=== PATIENT | male | born 1955 | race Caucasian/White ===

== ENCOUNTER 2017-07-01 10:10 | Inpatient (IN) | payer MEDICAID ==
[~2017-07-01] VITALS: Ht 180.3 cm; Wt 66.2 kg
[2017-07-01 10:30] VITALS: BP 152/93
[2017-07-01] MEDS ORDERED: Mylanta II UD 30ml ORAL ONE (10:45)
[2017-07-01 11:14] LABS: BASOPHILS % (AUTO) 0.8 % (0.0-2.0); EOSINOPHILS % (AUTO) 0.5 % (0.0-3.0); LYMPHOCYTES % (AUTO) 19.3 % (20.0-45.0); MEAN CORPUSCULAR HEMOGLOBIN 31.4 PG (27.0-31.0); MEAN CORPUSCULAR HGB CONC 31.9 G/DL (32.0-36.0); MEAN CORPUSCULAR VOLUME 98 FL (80-99); MEAN PLATELET VOLUME 6.1 FL (6.5-10.1); MONOCYTES % (AUTO) 9.4 % (1.0-10.0); NEUTROPHILS % (AUTO) 70.1 % (45.0-75.0); PLATELET COUNT 199 K/UL (150-450); RED BLOOD COUNT 4.87 M/UL (4.70-6.10); RED CELL DISTRIBUTION WIDTH 11.3 % (11.6-14.8); WHITE BLOOD COUNT 10.7 K/UL (4.8-10.8)
[2017-07-01 11:23] LABS: APPEARANCE,URINE CLEAR; KETONES,URINE 3+ (NEGATIVE); LEUKOCYTE ESTERASE ,URINE 1+ (NEGATIVE); NITRITE,URINE NEGATIVE (NEGATIVE); PH,URINE 5 (4.5-8.0); PROTEIN,URINE 3+ (NEGATIVE); UROBILINOGEN,URINE NORMAL MG/DL (0.0-1.0)
[2017-07-01 11:28] LABS: INR 1.1 (0.9-1.1)
[2017-07-01 11:39] LABS: BACTERIA,URINE FEW /HPF; MUCUS,URINE MODERATE /LPF (NONE/OCC); SQUAMOUS EPITHELIAL CELL,UR OCCASIONAL /LPF (NONE/OCC)
[2017-07-01 11:41] LABS: ANION GAP 12 mmol/L (5-15); CALCIUM 9.3 MG/DL (8.5-10.1); CARBON DIOXIDE 27 MMOL/L (21-32); CHLORIDE 99 MMOL/L (98-107); CREATININE 1.5 MG/DL (0.55-1.30); GLOMERULAR FILTRATION RATE 47.6 mL/min (>60); POTASSIUM 4.4 MMOL/L (3.5-5.1); SODIUM 137 MMOL/L (136-145)
[2017-07-01 11:53] LABS: ALANINE AMINOTRANSFERASE 17 U/L (12-78); ALBUMIN/GLOBULIN RATIO 0.7 (1.0-2.7); ASPARTATE AMINO TRANSFERASE 27 U/L (15-37); LIPASE 105 U/L (73-393); TOTAL PROTEIN 9.2 G/DL (6.4-8.2)
[2017-07-01 12:00] LABS: BILIRUBIN,DIRECT 0.2 MG/DL (0.0-0.3)
[2017-07-01 13:00] VITALS: BP 153/87
[2017-07-01] MEDS ORDERED: Morphine Sulfate 4mg/ml Inj IVP ONE (13:30)
--- NOTE | 2017-07-01 13:55 | Diagnostic Imaging Report ---
Indication: Abdominal pain Technique: Continuous helical transaxial imaging of the abdomen and pelvis was obtained from the lung bases to the pubic symphysis. No intravenous contrast was administered. Coronal 2-D reformats were also obtained. Automatic Exposure Control was utilized. Total Dose length Product (DLP): [address] Dose Index Volume (CTDIvol): 10.65, 0.15 mGy Comparison: none Findings: There is mild subsegmental atelectasis at the lung. There is moderate right hydronephrosis/hydroureter secondary to a right distal ureteral stone measuring 7 mm. Stone is about 2 cm from the UVJ. No additional stones are seen within either kidney or collecting system. Aorta is moderately calcified. No free fluid or free air identified. No evidence of bowel obstruction. Urinary bladder is unremarkable. There is a small right inguinal hernia containing fat. Suggestion of small peripancreatic and martine hepatis nodes nonspecific in nature. Impression: 7 mm right distal ureteral stone with mild to moderate hydronephrosis. Small right inguinal hernia containing fat Atherosclerotic vascular disease Small nodes in the celiac axis/peripancreatic region nonspecific in nature. The CT scanner at [facility] is accredited by the [employer] and the scans are performed using dose optimization techniques as appropriate to a performed exam including Automatic Exposure control.
[2017-07-01] MEDS ORDERED: Ketorolac 30mg Inj IV ONE (14:15)
--- NOTE | 2017-07-01 14:16 | Emergency Room Report ---
History of Present Illness General Chief Complaint: Pain Source: Patient Present Illness HPI Patient is a 62-year-old male presented after increased abdominal pain. Patient have increased pain to his lower abdomen. The pain was described as a vague type pain which did not radiate. Patient reports having some hesitancy with urination. He denies any fever he had gradual onset of symptoms. The patient was having some increased testicular fullness Allergies: Coded Allergies: No Known Allergies (Unverified , 07/01/17) Patient History Past Medical History: see triage record Reviewed Nursing Documentation: PMH: Agreed, PSxH: Agreed Nursing Documentation-PMH Past Medical History: No Stated History Review of Systems All Other Systems: negative except mentioned in HPI Physical Exam Vital Signs Date Time Temp Pulse Resp B/P (MAP) Pulse Ox O2 Delivery O2 Flow Rate FiO2 07/01/17 10:16 97.5 84 18 191/104 96 Room Air Sp02 EP Interpretation: reviewed, normal General Appearance: normal inspection, well appearing, alert, moderate distress Head: atraumatic ENT: normal ENT inspection, hearing grossly normal, normal voice Neck: normal inspection, full range of motion, supple, no bony tend Respiratory: normal inspection, lungs clear, normal breath sounds, no respiratory distress, no retraction, no wheezing Cardiovascular #1: regular rate, rhythm, no edema Gastrointestinal: normal inspection, normal bowel sounds, non tender, soft, no guarding, hernia - right inguinal reducible Genitourinary: no CVA tenderness Musculoskeletal: normal inspection, back normal, normal range of motion Neurologic: normal inspection, alert, oriented x3, responsive, ride operator III-XII nml as tested, speech normal Psychiatric: normal inspection, judgement/insight normal, mood/affect normal Skin: normal inspection, normal color, no rash Medical Decision Making Diagnostic Impression: Primary Impression: Kidney stone on right side Additional Impressions: Hydronephrosis Inguinal hernia ER Course Patient presented for abdominal pain. Differential diagnoses included ischemic bowel, appendicitis, perforated viscus, abdominal aortic aneurysm, inferior myocardial infarction, viral gastroenteritis Because of complexity of patient's case laboratory testing and imaging studies were ordered.Dr. Jay Restrepo was contacted for inpatient management due to panel physician. Hernia was easily reducible. Last Vital Signs Date Time Temp Pulse Resp B/P (MAP) Pulse Ox O2 Delivery O2 Flow Rate FiO2 07/01/17 13:00 98.0 86 22 153/87 94 Room Air Status: unchanged Disposition: ADMITTED INPATIENT Condition: Serious Scripts No Active Prescriptions or Reported Meds Referrals: NON PHYSICIAN (PCP) Chris Mcelroy Jul 01, 2017 14:16
[2017-07-01] MEDS ORDERED: cefTRIAXone 1 GM in NS 55 ML IVPB ONE (14:30)
[2017-07-01 17:27] VITALS: BP 152/90
[2017-07-01] MEDS ORDERED: Morphine Sulfate 4mg/ml Inj IVP PRN (19:15)
[2017-07-01 20:00] VITALS: BP 159/94
[2017-07-01 23:55] VITALS: BP 160/95
[2017-07-02] VITALS (12 sets, daily range): BP systolic 107–163; BP diastolic 59–89
--- NOTE | 2017-07-02 07:34 | Consultation ---
History of Present Illness General Date patient seen: Jul 02, 2017 Chief Complaint: Pain Reason for Consultation: Right inguinal hernia Present Illness HPI 62 year old male presented to ED with complaints of worsening right flank pain. As per patient, he was in his normal states of health until 2-3 days ago when he first started to notice right flank pain that was described as sharp 10/10 at max pain with associated nausea and emesis. After emesis he began to note some lower abdominal discomfort as well. States that he has had some urinary hesitancy recently. Had similar event 20 years ago. In ED had CT A/P which demonstrated and 7mm right ureteral stone. On CT was also noted to have a small right inguinal hernia which was fat containing. Surgery called to evaluate. Patient currently resting comfortable at bedside and states that pain is relived with pain medication but worsens as medication effect wears off. He does not recall history of hernia and was not aware he has a right inguinal hernia. Denies any prior signs or symptoms related to right inguinal hernia. No right groin pain or bulge. States he is fairly active and goes hiking without symptoms. No prior obstructive symptoms noted. Allergies: Coded Allergies: No Known Allergies (Unverified , 07/01/17) Medication History No Active Prescriptions or Reported Meds Patient History History Provided By: Patient Healthcare decision maker Resuscitation status Full Code Advanced Directive on File Past Medical/Surgical History Past Medical/Surgical History: (1) Inguinal hernia Review of Systems Constitutional: Denies: no symptoms, see HPI, chills, sweats, fever, malaise, weakness, other Eye: Denies: no symptoms, see HPI, eye pain, blurred vision, tearing, double vision, nose pain, nose congestion, acuity changes, discharge, other ENT: Denies: no symptoms, see HPI, ear pain, ear discharge, nose pain, nose congestion, throat pain, throat swelling, mouth pain, hearing loss, nasal discharge, other Respiratory: Denies: no symptoms, see HPI, cough, orthopnea, shortness of breath, stridor, wheezing, WU, sputum, other Cardiovascular: Denies: no symptoms, see HPI, chest pain, edema, palpitations, syncope, PND, other Gastrointestinal: Reports: abdominal pain, nausea, vomiting Genitourinary: Reports: dysuria, retention Musculoskeletal: Denies: no symptoms, see HPI, back pain, gout, joint pain, joint swelling, muscle pain, muscle stiffness, other Skin: Denies: no symptoms, see HPI, rash, change in color, change in hair/nails , dryness, lesions, other Psychiatric: Denies: no symptoms, see HPI, prior hx, anxiety, depressed feelings, emotional problems, SI, HI, hallucinations, other Neurological: Denies: no symptoms, see HPI, headache, numbness, paresthesia, seizure, tingling, tremors, focal weakness, syncope, dizziness, other Endocrine: Denies: no symptoms, see HPI, excessive sweating, flushing, intolerance to temperature, increased thirst, increased urine, unexplained weight loss, other Hematologic/Lymphatic: Denies: no symptoms, see HPI, anemia, blood clots, easy bleeding, easy bruising, swollen glands, diathesis, other All Other Systems: negative except mentioned in HPI Physical Exam General Appearance: WD/WN, no apparent distress, alert Lines, tubes and drains: peripheral HEENT: mucous membranes moist, PERRL Neck: normal inspection Respiratory/Chest: chest wall non-tender, lungs clear, normal breath sounds, no respiratory distress, no accessory muscle use Cardiovascular/Chest: normal peripheral pulses, normal rate, regular rhythm Abdomen: normal bowel sounds, non tender, soft, no organomegaly, no mass, hernia - small reducible right inguinal hernia noted on exam , other - right flank pain on palpation Genitourinary/Rectal: normal genital exam Extremities: normal range of motion, non-tender, normal inspection, no calf tenderness, normal capillary refill Skin Exam: normal pigmentation, warm/dry Neurologic: alert, oriented x 3 Last 24 Hour Vital Signs Date Time Temp Pulse Resp B/P (MAP) Pulse Ox O2 Delivery O2 Flow Rate FiO2 07/02/17 04:00 99.5 68 21 143/83 95 Room Air 07/02/17 00:20 98.8 07/01/17 23:55 98.8 74 18 160/95 95 Room Air 07/01/17 20:00 98.8 78 18 159/94 95 Room Air 07/01/17 17:27 97.3 75 20 152/90 96 Room Air 07/01/17 15:41 79 20 150/88 95 Room Air 07/01/17 13:00 98.0 86 22 153/87 94 Room Air 07/01/17 10:30 79 18 152/93 96 Room Air 07/01/17 10:16 97.5 84 18 191/104 96 Room Air Laboratory Tests Test 07/01/17 10:55 07/01/17 11:00 White Blood Count 10.7 K/UL (4.8-10.8) Red Blood Count 4.87 M/UL (4.70-6.10) Hemoglobin 15.3 G/DL (14.2-18.0) Hematocrit 48.0 % (42.0-52.0) Mean Corpuscular Volume 98 FL (80-99) Mean Corpuscular Hemoglobin 31.4 PG (27.0-31.0) H Mean Corpuscular Hemoglobin Concent 31.9 G/DL (32.0-36.0) L Red Cell Distribution Width 11.3 % (11.6-14.8) L Platelet Count 199 K/UL (150-450) Mean Platelet Volume 6.1 FL (6.5-10.1) L Neutrophils (%) (Auto) 70.1 % (45.0-75.0) Lymphocytes (%) (Auto) 19.3 % (20.0-45.0) L Monocytes (%) (Auto) 9.4 % (1.0-10.0) Eosinophils (%) (Auto) 0.5 % (0.0-3.0) Basophils (%) (Auto) 0.8 % (0.0-2.0) Prothrombin Time 11.0 SEC (9.30-11.50) Prothromb Time International Ratio 1.1 (0.9-1.1) Activated Partial Thromboplast Time 23 SEC (23-33) Sodium Level 137 MMOL/L (136-145) Potassium Level 4.4 MMOL/L (3.5-5.1) Chloride Level 99 MMOL/L (98-107) Carbon Dioxide Level 27 MMOL/L (21-32) Anion Gap 12 mmol/L (5-15) Blood Urea Nitrogen 19 mg/dL (7-18) H Creatinine 1.5 MG/DL (0.55-1.30) H Estimat Glomerular Filtration Rate 47.6 mL/min (>60) Glucose Level 88 MG/DL (74-106) Calcium Level 9.3 MG/DL (8.5-10.1) Total Bilirubin 1.9 MG/DL (0.2-1.0) H Direct Bilirubin 0.2 MG/DL (0.0-0.3) Aspartate Amino Transf (AST/SGOT) 27 U/L (15-37) Alanine Aminotransferase (ALT/SGPT) 17 U/L (12-78) Alkaline Phosphatase 66 U/L (46-116) Total Creatine Kinase 101 U/L (26-308) Troponin I < 0.017 ng/mL (0.000-0.056) Total Protein 9.2 G/DL (6.4-8.2) H Albumin 3.9 G/DL (3.4-5.0) Globulin 5.3 g/dL Albumin/Globulin Ratio 0.7 (1.0-2.7) L Lipase 105 U/L (73-393) Urine Color Yellow Urine Appearance Clear Urine pH 5 (4.5-8.0) Urine Specific [place] 1.025 (1.005-1.035) Urine Protein 3+ (NEGATIVE) H Urine Glucose (UA) Negative (NEGATIVE) Urine Ketones 3+ (NEGATIVE) H Urine Occult Blood 3+ (NEGATIVE) H Urine Nitrite Negative (NEGATIVE) Urine Bilirubin Negative (NEGATIVE) Urine Urobilinogen Normal MG/DL (0.0-1.0) Urine Leukocyte Esterase 1+ (NEGATIVE) H Urine RBC 5-10 /HPF (0 - 0) H Urine WBC 2-4 /HPF (0 - 0) Urine Squamous Epithelial Cells Occasional /LPF Urine Bacteria Few /HPF (NONE) Urine Mucus Moderate /LPF (NONE/OCC) H Height (Feet): 5 Height (Inches): 11.00 Weight (Pounds): 146 Medications Current Medications Medications (Trade) Dose Ordered Sig/Autumn Route PRN Reason Start Time Stop Time Status Last Admin Dose Admin Acetaminophen (Tylenol) 650 mg Q4H PRN ORAL Mild Pain/Temp > 100.5 07/01/17 19:00 07/31/17 18:59 Morphine Sulfate (Morphine Sulfate) 4 mg Q4H PRN IVP Severe Pain (Pain Scale 7-10) 07/01/17 19:15 07/08/17 19:14 07/01/17 23:44 Ondansetron HCl (Zofran) 4 mg Q6H PRN IVP Nausea & Vomiting 07/01/17 19:15 07/31/17 19:14 Sodium Chloride 1,000 ml @ 100 mls/hr Q10H IV 07/01/17 19:15 07/31/17 19:14 07/02/17 05:15 Assessment/Plan Problem List: (1) Inguinal hernia Assessment & Plan: 62 year old male with right inguinal hernia. Asymptomatic and reducible at this time. I discussed findings with patient at bedside. Patient expressed understanding. Currently main symptom is right flank pain related to right ureteral stone. He has been seen by urology and is tentatively scheduled for stent placement. No acute surgical intervention planned at this time. I will follow along with you while patient is in the hospital. If hernia becomes symptomatic will repair while in hospital otherwise patient can see me in the office and I can schedule him for elective repair. Thank you for this consultation and allowing me to participate in Mr. Infante' s care. ICD Codes: K40.90 - Unilateral inguinal hernia, without obstruction or gangrene , not specified as recurrent SNOMED: [id number] Qualifiers: Status: stable Dejon Terrell Jul 02, 2017 07:34
--- NOTE | 2017-07-02 12:21 | GI Initial Consult Note ---
History of Present Illness General Date patient seen: Jul 02, 2017 Time patient seen: 12:15 Reason for Hospitalization: Pain Referring physician: STANLEY MADISON Reason for Consultation: ABDOMINAL PAIN Present Illness HPI Patient is a 62-year-old male presented after increased abdominal pain. Patient have increased pain to his lower abdomen. The pain was described as a vague type pain which did not radiate. Patient reports having some hesitancy with urination. He denies any fever he had gradual onset of symptoms. The patient was having some increased testicular fullness. GI consulted for abdominal pain. HPI as noted above. Pt seen on floor, awake A&Ox4 NAD with no active s/sx of N/V/D. Denies any constipation, diarrhea, N/ V. Abdominal pain more described as cramping. CT AP shows ureteral stone. No leukocytosis. Lipase normal. Elevated total bilirubin without transaminitis or alk phos elevation. No known history history of endoscopic procedures. Home Meds No Active Prescriptions or Reported Meds Allergies: Coded Allergies: No Known Allergies (Unverified , 07/01/17) Patient History PMH Narrative Past Medical History: see triage record Reviewed Nursing Documentation: PMH: Agreed, PSxH: Agreed Nursing Documentation-PMH Past Medical History: No Stated History Review of Systems All Other Systems: negative except mentioned in HPI Physical Exam Vital Signs Date Time Temp Pulse Resp B/P (MAP) Pulse Ox O2 Delivery O2 Flow Rate FiO2 07/01/17 10:16 97.5 84 18 191/104 96 Room Air Sp02 EP Interpretation: reviewed, normal General Appearance: well appearing, no apparent distress, alert Head: normocephalic EENT: PERRL/EOMI, normal ENT inspection Neck: supple Respiratory: normal breath sounds, no respiratory distress Cardiovascular: normal rate Gastrointestinal: normal inspection, non tender, soft, normal bowel sounds, non -distended Rectal: deferred Genitourinary: deferred Musculoskeletal: normal inspection, back normal Neurologic: normal inspection, alert, oriented x3, responsive Psychiatric: normal inspection, judgement/insight normal, memory normal Skin: normal inspection, normal color, no rash, warm/dry, palpation normal, well hydrated Lymphatic: normal inspection, no adenopathy Current Medications Current Medications Medications (Trade) Dose Ordered Sig/Autumn Route PRN Reason Start Time Stop Time Status Last Admin Dose Admin Acetaminophen (Tylenol) 650 mg Q4H PRN ORAL Mild Pain/Temp > 100.5 07/01/17 19:00 07/31/17 18:59 Morphine Sulfate (Morphine Sulfate) 4 mg Q4H PRN IVP Severe Pain (Pain Scale 7-10) 07/01/17 19:15 07/08/17 19:14 07/01/17 23:44 Ondansetron HCl (Zofran) 4 mg Q6H PRN IVP Nausea & Vomiting 07/01/17 19:15 07/31/17 19:14 Sodium Chloride 1,000 ml @ 100 mls/hr Q10H IV 07/01/17 19:15 07/31/17 19:14 07/02/17 05:15 GI: Plan Problems: (1) Abdominal pain (2) Gilbert disease Plan CT AP reviewed >> 7 mm right distal ureteral stone with mild to moderate hydronephrosis. Total bilirubin elevation most likely 2/2 Gibert's disease fu nephro recs symptomatic treatment at this zofran prn pain mgmt monitor LFTs fu labs recommend outpatient colonoscopy screening Discussed with Dr. Díaz. Thank you for this patient referral, we will follow. Viviana Peters N.P. Jul 02, 2017 12:21
--- NOTE | 2017-07-02 14:29 | Consultation ---
History of Present Illness General Date patient seen: Jul 02, 2017 Time patient seen: 14:26 Chief Complaint: Pain Referring physician: STANLEY MADISON Reason for Consultation: ABDOMINAL PAIN Present Illness HPI 62 yo male with first ever episode right renal colic. Pain better controlled today but stone has not passed. No further nausea/vomiting Allergies: Coded Allergies: No Known Allergies (Unverified , 07/01/17) Medication History No Active Prescriptions or Reported Meds Patient History History Provided By: Patient, Medical Record Healthcare decision maker Resuscitation status Full Code Advanced Directive on File Past Medical/Surgical History Past Medical/Surgical History: (1) Kidney stone on right side (2) Inguinal hernia Review of Systems All Other Systems: negative except mentioned in HPI Physical Exam General Appearance: no apparent distress, alert Respiratory/Chest: lungs clear Cardiovascular/Chest: normal rate Abdomen: non tender, soft Last 24 Hour Vital Signs Date Time Temp Pulse Resp B/P (MAP) Pulse Ox O2 Delivery O2 Flow Rate FiO2 07/02/17 12:00 Room Air 07/02/17 12:00 Room Air 07/02/17 12:00 98.1 72 20 149/86 94 07/02/17 08:00 98.6 76 20 163/89 94 07/02/17 08:00 Room Air 07/02/17 04:00 99.5 68 21 143/83 95 Room Air 07/02/17 00:20 98.8 07/01/17 23:55 98.8 74 18 160/95 95 Room Air 07/01/17 20:00 98.8 78 18 159/94 95 Room Air 07/01/17 17:27 97.3 75 20 152/90 96 Room Air 07/01/17 15:41 79 20 150/88 95 Room Air Height (Feet): 5 Height (Inches): 11.00 Weight (Pounds): 146 Medications Current Medications Medications (Trade) Dose Ordered Sig/Autumn Route PRN Reason Start Time Stop Time Status Last Admin Dose Admin Acetaminophen (Tylenol) 650 mg Q4H PRN ORAL Mild Pain/Temp > 100.5 07/01/17 19:00 07/31/17 18:59 Ceftriaxone Sodium 1 gm/ Dextrose 55 ml @ 110 mls/hr Q24H IVPB 07/02/17 14:30 07/09/17 14:29 Morphine Sulfate (Morphine Sulfate) 4 mg Q4H PRN IVP Severe Pain (Pain Scale 7-10) 07/01/17 19:15 07/08/17 19:14 07/01/17 23:44 Ondansetron HCl (Zofran) 4 mg Q6H PRN IVP Nausea & Vomiting 07/01/17 19:15 07/31/17 19:14 Sodium Chloride 1,000 ml @ 100 mls/hr Q10H IV 07/01/17 19:15 07/31/17 19:14 07/02/17 05:[address]: right distal ureteral stone, 8 mm, with hydro Assessment/Plan Status: stable Assessment/Plan 62 yo male with right distal ureteral stone. Too large to pass. Pain is controlled, but needs decompression to protect from further pain. Consider elective lithotripsy as outpatient. 1. OR today for right ureteral stent placement. Grady Corbett M.D. Jul 02, 2017 14:29
[2017-07-02] MEDS ORDERED: cefTRIAXone 1 GM in D5W 55 ML IVPB SCH (14:30)
[2017-07-02] MEDS ORDERED: fentaNYL 100 mcg/2 mL IV ONE (15:00)
[2017-07-02] MEDS ORDERED: LR 1000ml ONE (15:00)
[2017-07-02] MEDS ORDERED: NS Irrig 1000ml ONE (15:00)
[2017-07-02] MEDS ORDERED: Sterile Water Irrig 1000ml IRRIG ONE (15:00)
[2017-07-02] MEDS ORDERED: Sterile Water For Irrig 2000ml IRRIG ONE ×2 (15:00→16:15)
[2017-07-02] MEDS ORDERED: Midazolam 2mg/2ml Inj ONE (15:00)
--- NOTE | 2017-07-02 15:11 | Pre-Procedure Note/Attestation ---
Pre-Procedure Note/Attestation Complete Prior to Procedure Planned Procedure: right Procedure Narrative: cysto right JJ stent placement Indications for Procedure Pre-Operative Diagnosis: right ureteral stone Attestation I attest that I discussed the nature of the procedure; its benefits; risks and complications; and alternatives (and the risks and benefits of such alternatives ), prior to the procedure, with the patient (or the patient's legal risk control field representative). I attest that, if there was a reasonable possibility of needing a blood transfusion, the patient (or the patient's legal risk control field representative) was given the [facility] standardized written summary, pursuant to the Ronnie [place] Blood Safety Act ([place] Health and Safety Code # 1645, as amended). I attest that I re-evaluated the patient just prior to the surgery and that there has been no change in the patient's H&P, except as documented below: Grady Corbett M.D. Jul 02, 2017 15:11
[2017-07-02] MEDS ORDERED: Propofol 200mg/20ml IV ONE (15:28)
[2017-07-02] MEDS ORDERED: Iothalamate Meglumine 60% 30ML INJ ONE (15:44)
--- NOTE | 2017-07-02 16:00 | Cardiology Report ---
APPROVED REPORT EKG Measurement Heart [id number] Normal sinus rhythm Minimal voltage criteria for LVH, may be normal variant Septal infarct, age undetermined Abnormal ECG
[2017-07-02] MEDS ORDERED: LR 1000ml 1,000 ML IVLG SCH (16:19)
--- NOTE | 2017-07-02 16:19 | Anethesia Preoperative Eval ---
Anesthesia Pre-op PMH/ROS General Date of Evaluation: Jul 02, 2017 Time of Evaluation: 15:40 Anesthesiologist: Soraya ASA Score: ASA 2 Mallampati Score Class I : Soft palate, uvula, fauces, pillars visible Class II: Soft palate, uvula, fauces visible Class III: Soft palate, base of uvula visible Class IV: Only hard plate visible Mallampati Classification: Class II Surgeon: Aric Diagnosis: R kidney stone Surgical Procedure: Cysto retrograde pyelogram stent placement Anesthesia History: none Social History: smoking - h/o Family History: no anesthesia problems Allergies: Coded Allergies: No Known Allergies (Unverified , 07/01/17) Medications: see eMAR Past Medical History Cardiovascular: Denies: HTN, CAD, AR, valve dz, arrhythmia, other Pulmonary: Denies: asthma, COPD, KERRY, other Gastrointestinal/Genitourinary: Reports: GERD - mild, Denies: CRI, ESRD, other Neurologic/Psychiatric: Denies: dementia, CVA, depression/anxiety, TIA, other Endocrine: Denies: DM, hypothyroidism, steroids, other HEENT: Denies: cataract (L), cataract (R), glaucoma, RUBY (L), RUBY (R), other Hematology/Immune: Denies: anemia, DVT, bleeding disorder, other Musculoskeletal/Integumentary: Denies: OA, RA, DJD, DDD, edema, other PMH Narrative: as above, admitted with acute abdominal pain, diagnosed with R KIDNEY STONE PSxH Narrative: ORIF R tibia Anesthesia Pre-op Phys. Exam Physician Exam Last Vital Signs Date Time Temp Pulse Resp B/P (MAP) Pulse Ox O2 Delivery O2 Flow Rate FiO2 07/02/17 12:00 Room Air 07/02/17 12:00 98.1 72 20 149/86 94 Constitutional: NAD Neurologic: CN 2-12 intact Cardiovascular: RRR, no M/R/G Respiratory: CTA Gastrointestinal: S/NT/ND Airway Exam Mallampati Score: Class II MO: full Neck: flexible ROM: full Teeth: missing Dentures: upper, lower Anesthesia Pre-op A/P Labs see chart Studies Pre-op Studies: EKG - NR Risk Assessment & Plan Assessment: ASA2 Plan: GA with LMA Status Change Before Surgery: No Pre-Antibiotics Drug: as scheduled MARIO MOELLER M.D. Jul 02, 2017 16:19
[2017-07-02] MEDS ORDERED: Meperidine 50mg/ml Inj(FOR RIGORS ONLY) IV PRN (16:30)
[2017-07-02] MEDS ORDERED: Ketorolac 30mg Inj IV PRN (16:30)
[2017-07-02] MEDS ORDERED: Hydromorphone 0.5mg/0.5ml inj IVP PRN (16:30)
[2017-07-02] MEDS ORDERED: DiphenhydrAMINE 50mg/ml Inj IVP PRN (16:30)
--- NOTE | 2017-07-02 16:37 | Brief Operative Note ---
Immediate Post Operative Note Operative Note Pre-op Diagnosis: right ureteral stone Procedure: cysto, right RPG, right JJ stent Post-op Diagnosis: same as pre-op Anesthesia: general Specimen: none Complications: none Condition: stable Fluids: 100 mL Estimated Blood Loss: none Drains: other - 6x24 JJ stent Implant(s) used?: Yes Grady Corbett M.D. Jul 02, 2017 16:36
--- NOTE | 2017-07-02 16:46 | Immediate Post-Op Evaluation ---
Immediate Post-Op Evalulation Immediate Post-Op Evalulation Procedure: Cysto, retrograde pyelogram stent placement Date of Evaluation: Jul 02, 2017 Time of Evaluation: 16:44 IV Fluids: 500 Blood Products: none Estimated Blood Loss: min Urinary Output: n /a Blood Pressure Systolic: 116 Blood Pressure Diastolic: 84 Pulse Rate: 72 Respiratory Rate: 20 O2 Sat by Pulse Oximetry: 99 Temperature (Fahrenheit): 98.1 Pain Score (1-10): 1 Nausea: No Vomiting: No Complications none Patient Status: reacts, patent, none Hydration Status: adequate MARIO MOELLER M.D. Jul 02, 2017 16:46
--- NOTE | 2017-07-02 22:17 | Consultation ---
DATE OF CONSULTATION: 07/02/2017 INFECTIOUS DISEASE CONSULTATION CONSULTING PHYSICIAN: Farhan Eubanks M.D. This consult is for coverage of Dr. Luther. PRIMARY ATTENDING PHYSICIAN: Jay Martin M.D. REASON FOR CONSULTATION: UTI. HISTORY OF PRESENT ILLNESS: The patient is a 62-year-old white male, admitted yesterday because of right flank pain, which started three days ago and moved down. The patient has some nausea. No vomiting. A CT scan of the abdomen and pelvis showed the right-sided hydronephrosis and stone in the ureter. PAST MEDICAL HISTORY: Significant, had a history of inguinal hernia before. MEDICATIONS: Got a dose of ceftriaxone in the ER. Getting morphine, Zofran, sodium chloride, and Tylenol. ALLERGIES: No known drug allergies. SOCIAL HISTORY: . Originally is from [place]. He is a school bus driver. He denies smoking or drug abuse. REVIEW OF SYSTEMS: No coughing. No shortness of breath. No fever. No vomiting, but has nausea. No dysuria. PHYSICAL EXAMINATION: VITAL SIGNS: Temperature 98.6 degrees, T-max 99.5 degrees, blood pressure 163/89, and pulse 76. GENERAL APPEARANCE: No acute distress. Awake, alert, and oriented. HEAD AND NECK: Mccleary conjunctiva. No oral lesion. HEART: S1 and S2 regular. LUNGS: Clear. ABDOMEN: Soft and nontender. EXTREMITIES: Has no edema. LABORATORY AND DIAGNOSTIC DATA: WBC 2.7, hemoglobin 15.3, hematocrit 38, platelets 199,000. Sodium 137, potassium 4.4, chloride 99, bicarbonate 27, BUN 19, and creatinine 1.5. Bilirubin is slightly elevated at 1.9. Total protein at arrival 9.2, but albumin is 3.9. CT scan of the abdomen and pelvis showed 7 mm right distal ureteral stone with [id number] hydronephrosis, a small right inguinal hernia containing fat. UA showed 5 to 10 RBCs, leukocyte esterase 1+, and nitrite negative. IMPRESSION: Nephrolithiasis with stone in distal ureter. The patient has hydronephrosis, may have urinary tract infection. Has a small inguinal hernia that was seen by the surgeon. RECOMMENDATION: Continue ceftriaxone. Urologic evaluation is pending. At the end of my exam, I thank Dr. Martin, for involving me in the care of this patient. Farhan Eubanks M.D. DR: Salvador JOB#: [id number] CC:
--- NOTE | 2017-07-02 22:47 | Operative Note - Dictated ---
DATE OF OPERATION: 07/02/2017 NAME OF PRIMARY SURGEON: Grady Corbett M.D. PREOPERATIVE DIAGNOSIS: Right ureteral stone. POSTOPERATIVE DIAGNOSIS: Right ureteral stone. PROCEDURE PERFORMED: Cystoscopy, right retrograde pyelogram, right double-J stent placement. ANESTHESIA: General. ESTIMATED BLOOD LOSS: Minimal. COMPLICATIONS: None. DRAINS: 6 x 24 double-J stent. SPECIMEN: None. PREOPERATIVE HISTORY: The patient is a pleasant 62-year-old gentleman, admitted yesterday for intractable nausea, vomiting, and abdominal pain, diagnosed with a right distal ureteral stone approximately 8 mm in size. The patient was counseled on the need for decompression of the collecting system given the large size of the stone and low likelihood that it will pass on its own. The patient is willing to move forward with the stent. He was made aware of the risks and benefits of the procedure. Risks including, but not limited to bleeding, infection, bladder injury, ureteral injury, urethral injury, retained stone fragments, and need for further surgery. The patient understood the risks, signed the consent, and was taken to the operating room. OPERATIVE PROCEDURE: The patient was brought to the operating room where general anesthesia was achieved easily. He was placed in dorsal lithotomy position, and all pressure points were padded. The perineum was prepped and draped in sterile fashion. He received preoperative antibiotics. A 21-Belarusian cystoscope sheath and 30-degree lens were used. The anterior and posterior urethra were within normal limits. Bladder was entered showing mild trabeculation. Bilateral ureteral orifices were in normal anatomical position. The stone was noted on installer inspector final fluoroscopy within the true pelvis. A 6-Belarusian ureteral catheter was used to intubate the right ureteral orifice. Retrograde pyelogram was shot showing brisk filling of the intravesical ureter, but no contrast passing proximal to the stone. A 0.035 Glidewire was passed and manipulated beyond the stone and coiled in the collecting system. A 6 x 24 double-J stent was advanced over the wire, coiled in the collecting system, and a good coil was noted in the bladder under direct vision. Immediate evacuation of debris-laden urine was noted. Bladder was emptied. The patient was then woken up and taken to recovery room in stable fashion. I was present for the entire case. All instrument counts were correct at the end of the case. PLAN: 1. The patient should be able to go home today or tomorrow. 2. Recommend outpatient followup for further intervention on an elective basis for ureteral stone lithotripsy. Grady Corbett DR: Maddi JOB#: [id number] CC:
[2017-07-03] VITALS: BP 137/78
[2017-07-03 04:09] VITALS: BP 138/79
--- NOTE | 2017-07-03 05:21 | General Progress Note ---
Assessment/Plan Problem List: (1) Abdominal pain ICD Codes: R10.9 - Unspecified abdominal pain SNOMED: 35218317 (2) Gilbert disease ICD Codes: E80.4 - Gilbert syndrome SNOMED: 99853469 (3) Kidney stone on right side ICD Codes: N20.0 - Calculus of kidney SNOMED: 73565341 Assessment/Plan fu labs fu urology out patient screening colonoscopy Subjective ROS Limited/Unobtainable: Yes Allergies: Coded Allergies: No Known Allergies (Unverified , 07/01/17) Subjective had cystoscopy and uretral stent placement yesterday Objective Last 24 Hour Vital Signs Date Time Temp Pulse Resp B/P (MAP) Pulse Ox O2 Delivery O2 Flow Rate FiO2 07/03/17 04:09 98.0 79 20 138/79 98 Room Air 07/03/17 04:00 Room Air 07/03/17 00:00 98.2 68 20 137/78 96 Room Air 07/03/17 00:00 Room Air 07/02/17 20:00 Room Air 07/02/17 20:00 98.2 79 20 149/84 95 Room Air 07/02/17 18:25 97 Room Air 07/02/17 18:10 98.2 71 16 138/83 99 Nasal Cannula 3.0 07/02/17 17:40 98.3 64 22 135/79 100 Nasal Cannula 3.0 07/02/17 17:30 66 22 137/78 100 Nasal Cannula 3.0 07/02/17 17:15 68 21 133/75 100 Nasal Cannula 3.0 07/02/17 17:00 71 18 121/75 100 Nasal Cannula 3.0 07/02/17 16:52 61 14 135/81 100 Simple Mask 6.0 07/02/17 16:47 64 11 116/84 99 Simple Mask 6.0 07/02/17 16:46 72 20 99 07/02/17 16:42 98.5 68 21 107/59 99 Simple Mask 6.0 07/02/17 12:00 Room Air 07/02/17 12:00 Room Air 07/02/17 12:00 98.1 72 20 149/86 94 07/02/17 08:00 98.6 76 20 163/89 94 07/02/17 08:00 Room Air Height (Feet): 5 Height (Inches): 11.00 Weight (Pounds): 146 General Appearance: alert EENT: normal ENT inspection Neck: supple Cardiovascular: normal rate Respiratory/Chest: lungs clear Abdomen: normal bowel sounds, non tender, soft Extremities: non-tender HELENA RUANO Jul 03, 2017 05:21
[2017-07-03 08:05] VITALS: BP 139/75
--- NOTE | 2017-07-03 09:35 | Infectious Diseases Prog Note ---
Assessment/Plan Assessment/Plan A; Nephrolithiasis R sided hydronephrosis Kalebbert syndome P; Discontinue Rocephin Agree with discharge with subsequent follow up for lithotripsy Subjective ROS Limited/Unobtainable: No Constitutional: Reports: no symptoms Respiratory: Reports: no symptoms Cardiovascular: Reports: no symptoms Gastrointestinal/Abdominal: Reports: no symptoms Genitourinary: Reports: no symptoms, other - has cystoscopy & stent placement yesterday Allergies: Coded Allergies: No Known Allergies (Unverified , 07/01/17) Objective Vital Signs Last 24 Hour Vital Signs Date Time Temp Pulse Resp B/P (MAP) Pulse Ox O2 Delivery O2 Flow Rate FiO2 07/03/17 08:05 97.6 68 20 139/75 99 Room Air 07/03/17 04:09 98.0 79 20 138/79 98 Room Air 07/03/17 04:00 Room Air 07/03/17 00:00 98.2 68 20 137/78 96 Room Air 07/03/17 00:00 Room Air 07/02/17 20:00 Room Air 07/02/17 20:00 98.2 79 20 149/84 95 Room Air 07/02/17 18:25 97 Room Air 07/02/17 18:10 98.2 71 16 138/83 99 Nasal Cannula 3.0 07/02/17 17:40 98.3 64 22 135/79 100 Nasal Cannula 3.0 07/02/17 17:30 66 22 137/78 100 Nasal Cannula 3.0 07/02/17 17:15 68 21 133/75 100 Nasal Cannula 3.0 07/02/17 17:00 71 18 121/75 100 Nasal Cannula 3.0 07/02/17 16:52 61 14 135/81 100 Simple Mask 6.0 07/02/17 16:47 64 11 116/84 99 Simple Mask 6.0 07/02/17 16:46 72 20 99 07/02/17 16:42 98.5 68 21 107/59 99 Simple Mask 6.0 07/02/17 12:00 Room Air 07/02/17 12:00 Room Air 07/02/17 12:00 98.1 72 20 149/86 94 Height (Feet): 5 Height (Inches): 11.00 Weight (Pounds): 146 General Appearance: no acute distress HEENT: mucous membranes moist Respiratory/Chest: lungs clear Cardiovascular: normal rate Abdomen: soft, non tender Extremities: no edema Neurologic/Psychiatric: alert, oriented x 3, responsive Current Medications Medications (Trade) Dose Ordered Sig/Autumn Route PRN Reason Start Time Stop Time Status Last Admin Dose Admin Acetaminophen (Tylenol) 650 mg Q4H PRN ORAL Mild Pain/Temp > 100.5 07/01/17 19:00 07/31/17 18:59 Ceftriaxone Sodium 1 gm/ Dextrose 55 ml @ 110 mls/hr Q24H IVPB 07/02/17 14:30 07/09/17 14:29 07/02/17 15:18 Morphine Sulfate (Morphine Sulfate) 4 mg Q4H PRN IVP Severe Pain (Pain Scale 7-10) 07/01/17 19:15 07/08/17 19:14 07/01/17 23:44 Ondansetron HCl (Zofran) 4 mg Q6H PRN IVP Nausea & Vomiting 07/01/17 19:15 07/31/17 19:14 Sodium Chloride 1,000 ml @ 100 mls/hr Q10H IV 07/01/17 19:15 07/31/17 19:14 07/03/17 01:30 MELECIO TOPETE Jul 03, 2017 09:35
--- NOTE | 2017-07-03 10:11 | General Progress Note ---
Progress Note Progress Note surgery: no acute events. doing much better today. minimal pain. no n/v/f/c. passing flatus. comfortable. no right groin pain. easily reducible small right inguinal hernia. discussed with patient in detail at bedside. no need for acute intervention while in hospital. information given to patient and he will follow up with me as an outpatient. thank you for this consultation. Dejon Terrell Jul 03, 2017 10:11
[2017-07-03 10:46] VITALS: BP 136/72
--- NOTE | 2017-07-03 10:46 | 48 Hour Post Anesthesia Eval ---
Post Anesthesia Evaluation Procedure: Cysto, retrograde pyelogram stent placement Date of Evaluation: Jul 03, 2017 Time of Evaluation: 10:45 Blood Pressure Systolic: 136 0: 72 Pulse Rate: 68 Respiratory Rate: 22 Temperature (Fahrenheit): 97.6 O2 Sat by Pulse Oximetry: 98 Airway: patent Nausea: No Vomiting: No Pain Intensity: 2 Hydration Status: adequate Cardiopulmonary Status: stable Mental Status/LOC: patient returned to baseline Follow-up Care/Observations: n/a Post-Anesthesia Complications: none Follow-up care needed: ready to discharge MARIO MOELLER M.D. Jul 03, 2017 10:46
[2017-07-03] MEDS ORDERED: Tubing IV Secondary IV ONE (11:14)
--- NOTE | 2017-07-04 15:15 | History and Physical Report ---
DATE OF ADMISSION: 07/01/2017 REASON FOR ADMISSION: Renal failure and hydronephrosis. HISTORY OF PRESENT ILLNESS: The patient complains of pain in suprapubic and right flank area for three days associated with vomiting. The patient diagnosed with kidney stones. The patient denied dysuria. Denied urinary frequency. Denies hematuria or chills. PAST MEDICAL HISTORY: None. PAST SURGICAL HISTORY: Right leg surgery. MEDICATIONS: None. ALLERGIES: None. SOCIAL HISTORY: Denies smoking, alcohol, or illicit drugs. FAMILY HISTORY: Noncontributory. REVIEW OF SYSTEMS: HEENT: Denies headaches. RESPIRATORY: Denies shortness of breath. Denies cough. CARDIOVASCULAR: Denies chest pain. GASTROINTESTINAL: Denies nausea, vomiting, or diarrhea. EXTREMITIES: Denies pain. CENTRAL NERVOUS SYSTEM: No change in vision or speech pattern. Does have right flank pain and mild suprapubic pain for three days . PHYSICAL EXAMINATION: VITAL SIGNS: Temperature 97.3 degrees, pulse 70, and blood pressure 133/70. HEENT: PERRLA. NECK: Supple. No lymphadenopathy. CHEST: Clear to auscultation. GASTROINTESTINAL: Soft, nontender, and nondistended. No organomegaly. mildly diffusely tender in the suprapubic area. EXTREMITIES: Edema 1+. Reflexes are equal on both sides. Moves all four extremities. normal. The patient has a stone in the right UVJ, right inguinal hernia, found on the imaging study. ASSESSMENT AND PLAN: For the kidney stone and pain syndrome, I have asked Dr. Corbett and Dr. Luther to see the patient for the treatment of kidney stone, which is most likely causing . Jay Martin M.D. DR: Juancarlos JOB#: [id number] CC:
--- NOTE | 2017-07-07 10:17 | Diagnostic Imaging Report ---
APPROVED REPORT CPT Code: 73755 Present Symptoms Comments: Screening BILATERAL: Imaging reveals a patent deep venous system bilaterally. There is no evidence of thrombus within the femoral, popliteal or tibial segments. The greater saphenous veins are also within normal limits. Doppler indicates normal spontaneous flow within these segments.
--- NOTE | 2017-07-08 15:44 | Discharge Summary ---
Discharge Summary Hospital Course Date of Admission Jul 01, 2017 at 14:45 Date of Discharge Jul 03, 2017 at 11:15 Admitting Diagnosis RENAL STONES, HYDRONEPHROSIS SAMANTHA Infante is a 62 year old male who was admitted on Jul 01, 2017 at 14:45 for Renal Stones, Hydronephrosis Hospital Course [id number] Discharge Discharge Disposition Patient was discharged to Home (01) Discharge Diagnoses: Jennifer Devi NP Jul 08, 2017 15:44
--- NOTE | 2017-07-08 23:15 | Discharge Summary 2 SIG ---
DATE OF ADMISSION: 07/01/2017 DATE OF DISCHARGE: 07/03/2017 CONSULTANTS: 1. Grady Corbett M.D. 2. Dejon Terrell M.D. 3. Thad Díaz M.D. 4. Farhan Eubanks M.D. BRIEF HOSPITAL COURSE: The patient is a 62-year-old male, who presented to ED complaining of abdominal pain. Pain was increased to the lower abdomen and described to be vague with no radiation. There was some hesitancy with urination. He denied fever and had onset of symptoms. There was also feeling of testicular fullness. At ED, CT of the abdomen and pelvis showed a 7 mm right ureteral stone. It was also noted to have a small right inguinal hernia, which was containing fat. Surgery was called to evaluate. The patient was comfortable and pain was relieved with medication. Recommend to treat current symptom, which is flank pain related to ureteral stone. No acute surgical intervention needed regarding the hernia. He was seen by Dr. Corbett. The patient had a right distal ureteral stone that is too large to pass. On 07/02/2017, he underwent cystoscopy with right retrograde pyelogram and placement of right double-J stent. He was recommended to undergo elective lithotripsy as outpatient. He was initially given Rocephin and post cystoscopy, Rocephin was discontinued. He was given pain management and IV hydration. He was eventually discharged home. FINAL DIAGNOSES: 1. Nephrolithiasis. 2. Right-sided hydronephrosis. 3. Gilbert syndrome. 4. Status post cystoscopy with placement of right stent. 5. Inguinal hernia. DISPOSITION: The patient was discharged home. Advised to follow up with Urology and PMD as outpatient. Yoel Chua M.D. I have been assigned to dictate discharge summary on this account and I was not involved in the patient's management. Jennifer Devi N.P. DR: Ginger JOB#: [id number] CC: BELEN
== END 2017-07-03 11:15 | disposition home or self-care (01) | DRG 465 ==
LOC: EMR 10:39 → 4E 14:45 → EDBEDREQ 15:40
PROC: BT1DZZZ Fluoroscopy of Right Kidney, Ureter and Bladder (ICD-10-PCS; 2017-07-02)
PROC: 0T768DZ Dilation of Right Ureter with Intraluminal Device, Via Natural or Artificial Opening Endoscopic (ICD-10-PCS; principal; 2017-07-02 15:30)
DX: N13.2 Hydronephrosis with renal and ureteral calculous obstruction (principal); E80.4 Gilbert syndrome; K40.90 Unilateral inguinal hernia, without obstruction or gangrene, not specified as recurrent
CPT/HCPCS: 36415; 74176; 74420; 76000; 80053; 81003; 82248; 82550; 83690; 84484; 85025; 85610; 85730; 87086; 93005; 93970; 94003; 94150; 99285; J2250; J2405